=== PATIENT | female | born 1940 | race Caucasian/White ===

== ENCOUNTER 2019-09-13 16:11 | Outpatient (CLI) | payer MEDICARE, OTHER ==
[~2019-09-13 16:11] MED LIST: Iopamidol 370 76% 100 ML VIAL ONE
--- NOTE | 2019-09-13 17:00 | CT ---
CT ABDOMEN AND PELVIS WITH IV CONTRAST 09/13/2019 CLINICAL INFORMATION: Constipation for 2 weeks. Injury after fall. COMPARISON: None. Technique: Multiple contiguous axial CT images are obtained through the abdomen and pelvis with IV contrast. Cor onal reformatted images are provided. FINDINGS: Lower Chest: There are irregular nodular appearing densities seen at the right lung base with associa ji calcification. Mild pleural and parenchymal changes are also seen in the right lung base which are similar but to a lesser extent compared to findings at the right lung base. A left subclavian cardiac pacemaking device is in place. Dorsal column stimulator leads are noted in place. Vessels: Vascular calcifications and mild atherosclerotic plaque is seen in the abdominal aorta. Abdomen: Portal vein:Patent Gallbladder: Surgically absent with mild biliary ductal dilatation which is likely secondary to reser voir effect. Liver: A 18 mm x 9 mm hypodense cystic appearing lesion is seen in the lateral aspect lateral segment left hepatic lobe which likely represents a small hepatic cyst. Spleen: within normal limits. Pancreas: within normal limits. Adrenals: Within normal limits. Kidneys: A subcentimeter too small to characterize hypodense lesion is seen in the superior pole righ t kidney. There is a mild peripheral scarring are seen involving the right kidney as well. A small subcentimeter too small to characterize hypodense lesion is seen in the midportion and in the inferio r pole left kidney. Bowel: A moderate amount retained fecal material is seen throughout the colon. A few scattered coloni c diverticuli are seen. Appendix: Not definitely visualized, but no secondary signs are seen to suggest appendicitis. Peritoneum: No ascites or free air; no fluid collection. Mesentery and Retroperitoneum: No enlarged mesenteric or retroperitoneal lymph nodes. Abdominal Wall: within normal limits. Pelvis: Reproductive Organs: Hysterectomy. Pelvis within normal limits. Bladder: A Mireles catheter is present in the urinary bladder which is mostly decompressed. Gas is seen in the urinary bladder likely related to recent catheterization. Bones: Left total hip prosthesis is noted in place which does result in artifact in the lower pelvis. Degenerative changes are seen in the spine. There is a burst fracture involving the L1 vertebral body with lucency seen within the midportion and anterior aspect of the vertebral body. This likely r epresents a more recent fracture. There is retropulsion of the posterior inferior endplate of the L1 vertebral body which extends into the central canal by approximately 7 mm. This does result in eff acement of the anterior aspect of the thecal sac with mild central canal narrowing. There is grade 1 anterolisthesis of L4 on L5 with facet degenerative changes at this level. IMPRESSION: 1. Burst fracture L1 vertebral body which likely represents a more acute fracture. There is at least 50% loss of height centrally involving this vertebral body fracture. 2. Grade 1 anterolisthesis of L4 on L5. 3. Constipation and evidence of colonic diverticulosis. 4. Probable pleural and parenchymal scarring at each lung base. 5. Postcholecystectomy changes and evidence of hysterectomy. 6. Subcentimeter too small to characterize hypodense lesions in each kidney with cortical scarring in volving the right kidney. 7. Probable left hepatic lobe cyst.
== END 2019-09-13 16:12 | disposition home or self-care (01) ==
LOC: CT 16:11
PROVIDERS: ATTEND Family Medicine
DX: S32.011D Stable burst fracture of first lumbar vertebra, subsequent encounter for fracture with routine healing (principal)
CPT/HCPCS: 74019; 74177; Q9967

== ENCOUNTER 2019-09-23 10:02 | Outpatient (CLI) | payer MEDICARE, OTHER ==
--- NOTE | 2019-09-23 10:37 | RAD ---
EXAM: 3 views of the lumbosacral spine HISTORY: Low back pain COMPARISON: CT abdomen/pelvis 09/13/2019 FINDINGS: There is a stable compression fracture of L1 with approximately 50% anterior height loss. T he other vertebral bodies demonstratenormal height without evidence of fracture. There is grade 1 anterolisthesis of L4 and L5, unchanged. Posterior facet arthrosis is seen in the lower lumbosacral s pine. A spinal stimulation device is partially visualized. The sacroiliac joints are unremarkable. IMPRESSION: 1. Stable wedge compression fracture of L1 2. Stable spondylolisthesis of L4 and L5.
== END 2019-09-23 10:03 | disposition home or self-care (01) ==
LOC: TBSIIMAG 10:02
PROVIDERS: ATTEND Surgery
DX: S32.010A Wedge compression fracture of first lumbar vertebra, initial encounter for closed fracture (principal); M43.16 Spondylolisthesis, lumbar region
CPT/HCPCS: 72100

== ENCOUNTER 2019-10-10 12:49 | Outpatient (CLI) | payer MEDICARE, OTHER ==
--- NOTE | 2019-10-10 13:08 | RAD ---
EXAM: 3 views of the lumbosacral spine HISTORY: Low back pain after fall in August COMPARISON: 09/23/2019 FINDINGS: 3 views of the lumbosacral spine shows a stable wedge compression fracture of L1 with appro ximately 50% height loss. There is stable grade 1 anterolisthesis of L4 on L5. A spinal stimulation device is partially visualized. The sacroiliac joints are unremarkable. IMPRESSION: 1. Stable wedge compression fracture of L1 2. Stable degenerative changes of the lumbar spine
== END 2019-10-10 12:50 | disposition home or self-care (01) ==
LOC: TBSIIMAG 12:49
PROVIDERS: ATTEND Surgery
DX: M54.5 Low back pain (principal); S32.010A Wedge compression fracture of first lumbar vertebra, initial encounter for closed fracture; M47.816 Spondylosis without myelopathy or radiculopathy, lumbar region
CPT/HCPCS: 72100